=== PATIENT | male | born 2000 | race Caucasian/White ===

== ENCOUNTER 2024-01-12 12:40 | Emergency (ER) | payer SELFPAY ==
[~2024-01-12] VITALS: Ht 177.8 cm; Wt 137.0 kg
[2024-01-12 12:50] VITALS: O2SAT 98
[2024-01-12 16:27] VITALS: BP 151/91; PULSE 82; RESP 18; TEMP 98
== END 2024-01-12 16:26 | disposition home or self-care (01) ==
LOC: ER 14:41
DX: R09.89 Other specified symptoms and signs involving the circulatory and respiratory systems (principal); F41.9 Anxiety disorder, unspecified; R05.9 Cough, unspecified
CPT/HCPCS: 71045; 93005; 99283